=== PATIENT | female | born 1945 | race Caucasian/White ===

== ENCOUNTER 2020-10-24 10:46 | Inpatient (IN) | payer MEDICARE ==
[~2020-10-24] VITALS: Ht 157.5 cm; Wt 76.7 kg
[~2020-10-24 10:46] MED LIST: AMOXICILLIN 8751 TAB PO; ARANESP SQ; ASPIR-LOW81 MG PO; ASPIRIN 81M81 MG/TA2 PO; ASPIRIN E.C. 8181 MG PO; CALCITRIOL PO; CALCIUM CARB W/1 TA1 PO; CALCIUM CARBONATE PO; CALCIUM600 M2 PO; CARAFATE 1GM1 G PO; CHOLESTYRAMINE1 PO1; COREG 6.256.25 MG/TA PO; COUMADIN 5MG5 MG/TAB PO; CREON 120000 U-1 ECC PO; CYANOCOBAL1000 MCG/2 IM; DIOVAN; DIOVAN HCT 12.51 TA1 PO; DIOVAN/HCT 12.51 TA1 PO; DIOVAN160 MG PO; DIOVAN40 MG PO; DIOVAN80 M1 PO; DOXYCYCLINE 10100 MG PO; FERROUS SU325 MG/TAB PO; FOLIC ACID; GLUCOPHAGE XR500 M1 PO; GLUCOTROL XL2.5 MG PO; HCTZ 25MG TAB25 MG PO; HCTZ PO; HUMIRA40 MG/0.1 SC; HYDROCHLOROT; HYDRODIURIL50 MG PO; IRON325 MG PO; JANUVIA50 MG PO; KENALOG0.1% TP; KLOR-CON M2020 MEQ PO; LASIX 40MG TABL40 MG PO; LEVEMIR100 U/ML SC; LEVEMIR100 U/ML SQ; LEVOTHYROXIN0.075 MG PO; LEVOTHYROXINE PO; LIPITOR 10MG10 MG PO; LIQUID MAGNESI400 MG PO; LOMOTIL 0.025 M1 TAB PO; LOTENSIN40 MG PO; LOTRIMIN15 GM TOP; MAG-OX 400400 MG/TAB PO; MAGNESIUM OXIDE PO; MULTI VITAMINS1 TAB PO; NATURAL MAGNES200 MG PO; NORCO 325 MG-7.1 TAB PO; NORVASC 5MG5 MG/TAB PO; OMNICEF 300MG300 MG PO; ONE DAILY1 TA1 PO; OSCAL 500 TAB500 MG PO; PERCOCET 325 MG1 TA2 PO; PRANDIN 0.5MG0.5 MG PO; PRANDIN1 MG PO; PREDNISONE 5MG5 MG PO; PREDNISONE20 MG PO; PRIL40 PO; PRILOSEC 20MG20 MG PO; PROAIR HFA0.09 MG/AC IH; QUESTRAN LIGH4 G/PKT PO; QUESTRAN LITE 41 PKT PO; QUESTRAN4 GM/9 GM PO; RESTORIL 1515 MG/CAP PO; ROCALTROL0.5 MCG PO; SODIUM BICARB PO; SODIUM BICARBO650 MG PO; SODIUM BICARBONATE PO; SYNTHROID0.075 MG/T PO; THERAGRAN1 TA1 PO; TUMS500 MG; TYLENOL 325MG325 MG PO; VENOFER IV; VIT D; VITAMIN B11000 MCG/M IM; VITAMIN C250250 MG PO; VITAMIN D; VITAMIN D 400400 IU PO; VITAMIN D PO; VITAMIN D31000 IU PO; VITAMIN D5000 IU PO; ZITHROMAX 250M250 MG PO; ZOFRAN 4MG T4 MG/TAB PO; ZOFRAN ODT4 MG PO; ZYLOPRIM 100MG100 MG PO; ZYLOPRIM 300MG300 MG PO; [UNRECOGNIZED DRUG - OTHER]
[2020-10-24 11:37] LABS: BASO % 0.5 % (0.0-2.0); GRAN % 60.9 % (42.2-75.2); LYMPH % 29.8 % (20.0-51.0); MEAN CELL VOLUME 95 fl (80.0-100.0); MEAN CORPUSCULAR HEMOGLOBIN 29 pg (27.0-31.0); MEAN CORPUSCULAR HGB CONC 31 g/dl (33.0-37.0); MEAN PLATELET VOLUME 9.8 fl (7.4-10.4); MONO # 0.6 (0.1-0.6); MONO % 8.6 % (1.7-9.3); PLATELET COUNT 226 K/mm3 (130-400)
[2020-10-24 11:50] LABS: ALBUMIN 3.9 gm/dL (3.5-5.0); BILIRUBIN,TOTAL 0.6 mg/dL (0.0-1.0); CALCIUM 7.8 mg/dL (8.4-10.2); CREATININE, serum 2.64 (0.52-1.25); POTASSIUM 3.6 mmol/L (3.4-5.0); TOTAL PROTEIN 7.1 gm/dL (6.4-8.2)
[2020-10-24 12:41] LABS: TROPONIN-I 0.049 ng/mL (0.000-0.035)
[2020-10-24 16:15] VITALS: BP 160/82; PULSE 71
--- NOTE | 2020-10-24 17:47 | NUR ---
PT ON 6L OXYMASK, DENIES SOB, REPORTS NAUSEA EARLIER TODAY BUT NON AT THIS TIME, PT PLEASANT, PT ALERT AND ORIENTED, ASSESSMENT PERFORMED, VITALS TAKEN, PT DENIES PAIN OR DISCOMFORT, WATER AT BEDSIDE, FLUIDS RUNNING, ANTIBIOTICS GIVEN, NO OTHER NEEDS
[2020-10-24 17:48] LABS: COLLECTION METHOD CLEAN CATCH
--- NOTE | 2020-10-24 17:59 | NUR ---
PT REFUSING DINNER, PT JUST WANTS TO SLEEP SHE SAYS.
[2020-10-24 18:06] LABS: PH 6 (5-8); SQUAMOUS EPITHELIAL None Seen /hpf; URINE APPEARANCE Hazy; URINE BACTERIA Rare /hpf; URINE BILIRUBIN Negative (NEGATIVE); URINE BLOOD 1+ (NEGATIVE); URINE COLOR Yellow; URINE GLUCOSE Negative (NEGATIVE); URINE KETONE 1+ (NEGATIVE); URINE LEUKOCYTE ESTERASE Negative (NEGATIVE); URINE NITRATE Negative (NEGATIVE); URINE PROTEIN(semi-quant) 2+ (NEGATIVE); URINE RBC 0-2 /hpf; URINE UROBILINOGEN Negative (NEGATIVE)
[2020-10-24 19:08] VITALS: BP 150/73; PULSE 76; TEMP 97.9
--- NOTE | 2020-10-24 19:27 | NUR ---
[facility] 459 per lab. Mervat VANEGAS notified.
--- NOTE | 2020-10-24 20:40 | NUR ---
Resting in bed. Assessment complete. Bases bilateral diminished otherwise clear. Heart sounds normal. Bowels active x4. Pulses present throughout. No edema noted. IV right AC infusing without complications. Denies pain. Denies needs at this time. Call light in reach.
--- NOTE | 2020-10-24 23:50 | NUR ---
Resting in bed. Denies needs. Call light in reach.
[2020-10-25 00:06] VITALS: BP 154/68; BP 160/73; PULSE 90; TEMP 97.1
--- NOTE | 2020-10-25 03:56 | NUR ---
Resting in bed. Call light in reach.
[2020-10-25 03:58] VITALS: BP 156/69; PULSE 87; TEMP 96.8
--- NOTE | 2020-10-25 05:10 | NUR ---
Reported headache after waking up, 8/10. Provided with PRN tylenol. Denies other needs at this time.
[2020-10-25 06:39] LABS: BASO % 0.3 % (0.0-2.0); GRAN # 2.5 (1.4-6.5); GRAN % 71.9 % (42.2-75.2); LYMPH # 0.7 (1.2-3.4); LYMPH % 20.5 % (20.0-51.0); MEAN CELL VOLUME 96 fl (80.0-100.0); MEAN CORPUSCULAR HGB CONC 31 g/dl (33.0-37.0); MEAN PLATELET VOLUME 10.7 fl (7.4-10.4); MONO # 0.2 (0.1-0.6); PLATELET COUNT 184 K/mm3 (130-400); RED BLOOD COUNT 3.14 M/mm3 (4.10-5.30); REDCELL DISTRIBUTION WIDTH-CV 12.9 % (11.5-14.5)
--- NOTE | 2020-10-25 06:39 | NUR ---
Patient required x1 dose of tylenol for headache. Otherwise uneventful night. Resting in bed this AM. Call light in reach.
[2020-10-25 06:48] LABS: C-REACTIVE PROTEIN 2.8 mg/dL (0.0-0.9); CALCIUM 6.9 mg/dL (8.4-10.2); CREATININE, serum 2.24 (0.52-1.25); POTASSIUM 3.5 mmol/L (3.4-5.0)
[2020-10-25 06:51] LABS: HEMATOCRIT 30.2 % (37.0-47.0); HEMOGLOBIN 9.3 g/dl (12.5-16.0); MEAN CORPUSCULAR HEMOGLOBIN 30 pg (27.0-31.0)
[2020-10-25 06:57] LABS: TROPONIN-I 0.033 ng/mL (0.000-0.035)
--- NOTE | 2020-10-25 07:07 | NUR ---
Report given to SAM Brock
[2020-10-25 08:47] VITALS: BP 148/82; PULSE 69; TEMP 96.5
--- NOTE | 2020-10-25 10:24 | NUR ---
Material Worker attempted to contact patient by room phone and was unable to reach her. Phone number listed as patient's cell phone is actually her daughter, Annie's phone number (ph#[phone]). Patient lives with her son, Torsten (ph#[phone]) and daughter in law, Lea. SW contacted Torsten to complete intake. Patient has her own apartment in Tor[place] and Lea's home and patient sees Dr. Kumar for primary care. Patient obtains [facility] from [facility] and Torsten advised he picks up medications for patient as she doesn't get out as much anymore. Patient uses a cane for ambulation and Torsten advised that he thinks patient's is supposed to be on oxygen, but isn't sure if she is compliant with this. Torsten advised that sometimes patient will not sure all information with her family and describes patient as "cankanterous" at times. Torsten advised patient is mostly independent with ADLS however has had more difficulty since about May. Torsten did state that patient does her own meals. Patient's daughter, Annie typically takes patient to her appointments but Torsten reports patient will not allow Annie to come into appointments with her. Patient does not have Advance Directives. Patient is not and has five children: Torsten, Annie, Mateo, Chetan, and Jan. Torsten advised patient will likely plan to return home at discharge. MAGGIE spoke with Hospitalist to request PT/OT orders and will continue to follow for discharge needs.
[2020-10-25 11:12] VITALS: BP 138/78; PULSE 75; TEMP 97.2
--- NOTE | 2020-10-25 13:05 | NUR ---
Department Administrator was informed by Hospitalist that patient will discharge over the weekend and will likely need home oxygen. SW contacted patient by room phone and this time patient answered. Patient verbalized understanding and selected [facility] as DME provider if she will require home oxygen. SW contacted [facility] and faxed initial referral. SW contacted patient's son, Torsten and provided update. SW will continue to follow.
--- NOTE | 2020-10-25 14:02 | NUR ---
PATIENT ON 3LPM SO02 92%
[2020-10-25 16:20] VITALS: BP 142/70; PULSE 79; TEMP 97.4
--- NOTE | 2020-10-25 18:13 | NUR ---
Patient is alert and oriented. patient report poor appetite for food. called [facility] to request for patient Previous lab and medication list. Scheduled follow up appt with Dr Kumar for the 10/31 @ 1400 - Telehealth visit. Patient continue on NS 60ml/hr. Patient to follow up with Cardiology for elevated troponin. Patient continue to have loose stool. Patient resting in bed at this time.
[2020-10-25 19:25] VITALS: BP 151/62; PULSE 78; TEMP 98.1
[2020-10-26 00:02] VITALS: BP 157/56; PULSE 77; TEMP 97.7
--- NOTE | 2020-10-26 00:17 | NUR ---
up to restroom and returned to bed. Denies other needs. Call light in reach.
--- NOTE | 2020-10-26 02:57 | NUR ---
Per respiratory, patient increased to 6 liters oximask. Mervat VANEGAS notified. No new orders at this time.
[2020-10-26 03:24] VITALS: BP 157/63; PULSE 77; TEMP 98.4
--- NOTE | 2020-10-26 06:24 | NUR ---
Patient had uneventful night. Resting in bed this AM. Call light in reach.
--- NOTE | 2020-10-26 07:09 | NUR ---
Report given to SAM Bai
[2020-10-26 07:45] VITALS: BP 158/78; PULSE 77; TEMP 97.5
--- NOTE | 2020-10-26 09:15 | NUR ---
Patient laying in bed, A&Ox3. VSS 3L NC O2. No reported SOB. Reports pain in neck and discomfort r/t laying in the hospital bed. Patient is really wanting to go home. Doctor notified. Droplet/contact precautions in place. Patient refusing to eat hospital food. Nursing staff encouraging patient to eat. No further needs expressed from the patient. Call light within reach
[2020-10-26 09:54] LABS: BASO % 0.2 % (0.0-2.0); GRAN # 4.8 (1.4-6.5); GRAN % 75.7 % (42.2-75.2); LYMPH # 1.1 (1.2-3.4); LYMPH % 17.2 % (20.0-51.0); MEAN CELL VOLUME 94 fl (80.0-100.0); MEAN CORPUSCULAR HGB CONC 31 g/dl (33.0-37.0); MEAN PLATELET VOLUME 10.7 fl (7.4-10.4); MONO # 0.4 (0.1-0.6); MONO % 6.4 % (1.7-9.3); PLATELET COUNT 235 K/mm3 (130-400); RED BLOOD COUNT 3.34 M/mm3 (4.10-5.30); REDCELL DISTRIBUTION WIDTH-CV 13.1 % (11.5-14.5)
[2020-10-26 10:08] LABS: CALCIUM 7.4 mg/dL (8.4-10.2); CREATININE, serum 1.9 (0.52-1.25); HEMATOCRIT 31.4 % (37.0-47.0); HEMOGLOBIN 9.8 g/dl (12.5-16.0); MEAN CORPUSCULAR HEMOGLOBIN 29 pg (27.0-31.0)
[2020-10-26 10:10] LABS: MAGNESIUM 0.9 mg/dL (1.6-2.3)
[2020-10-26 12:05] VITALS: BP 160/68; PULSE 71; TEMP 96.9
[2020-10-26 16:00] VITALS: BP 147/55; PULSE 78; TEMP 98
--- NOTE | 2020-10-26 18:26 | NUR ---
Patient had an uneventful day. A&Ox4. VSS 2L NC O2, no report SOB.IV CDI, fluids infusing. Complaints of pain in neck and a headache. Pain medication given when requested. Droplet/contact precautions in place. No further needs expressed from the patient. Call light within reach
[2020-10-26 20:02] VITALS: BP 131/56; PULSE 80; TEMP 97.5
--- NOTE | 2020-10-26 20:45 | NUR ---
Resting in bed. Assessment complete. Bases bilaterally crackles present otherwise lung sounds clear. Heart sounds normal. Bowels active x4. Pulses present throughout. No edema noted. INT right AC difficult to flush and IV pump having difficulty infusing. Restarted by house supervisior in left wrist. Denies needs. Denies pain. Refused HS sodium bicarb. Call light in reach.
--- NOTE | 2020-10-27 00:08 | NUR ---
Resting in bed. Denies needs. Call light in reach.
[2020-10-27 00:47] VITALS: BP 135/57; PULSE 73; TEMP 98.6
[2020-10-27 04:45] VITALS: BP 137/50; PULSE 79; TEMP 98.3
--- NOTE | 2020-10-27 05:08 | NUR ---
Patient had an uneventful night. Resting in bed this AM. Call light in reach.
--- NOTE | 2020-10-27 06:48 | NUR ---
Report given to SAM Hernandez
[2020-10-27 08:30] VITALS: BP 173/55; PULSE 76; TEMP 98.2
--- NOTE | 2020-10-27 08:50 | NUR ---
PATIENT ASSESSMENT COMPLETED. SHE SITS AT THIS SIDE OF THE BED AND WILL TAKE MORNING MEDICATION AND WILL EAT A LITTLE BREAKFAST. DENIES SOB AND KEEPS OXYGEN ON AT 2L
[2020-10-27] MEDS ORDERED: DOXYCYCLINE 10100 MG PO (09:47)
[2020-10-27] MEDS ORDERED: TYLENOL 325MG325 MG PO (09:47)
[2020-10-27] MEDS ORDERED: ROBITUSSIN100 MG/5 M PO (09:48)
[2020-10-27] MEDS ORDERED: DECADRON6 MG PO (09:51)
[2020-10-27] MEDS ORDERED: OXYGEN (09:55)
[2020-10-27 11:18] LABS: MAGNESIUM 1.8 mg/dL (1.6-2.3); POTASSIUM 3.1 mmol/L (3.4-5.0)
[2020-10-27 12:00] VITALS: BP 172/53; PULSE 78; TEMP 98.2
--- NOTE | 2020-10-27 13:09 | NUR ---
SW update, social media strategist faxed [facility] for oxygen [phone] , spoke with aviation safety equipment technician for delievery of tank to hospital. Reports fax received and will be out with in the hour. faxed [phone] awaiting delivery.
--- NOTE | 2020-10-27 15:00 | NUR ---
PATIENT DISCHARGED TO HOME VIA WHEELCHAIR WITH HER BELONGINGS. SHE DENIES QUESTIONS AND SHE DENIES ANY BELONGINGS THAT HAVE BEEN IN LOCK UP. BROUGHT TO THE ED DOORS FOR DAUGHTER TO PICK HER UP.
[2020-10-28] MEDS ORDERED: NORCO 325 MG-51 TAB PO (18:29)
== END 2020-10-27 15:00 | disposition home or self-care (01) | DRG 177 ==
LOC: COL.ER 10:46 → MEDICAL 14:00
PROVIDERS: Emergency Medicine; Internal Medicine; Student in an Organized Health Care Education/Training Program; ADMIT Student in an Organized Health Care Education/Training Program
DX: U07.1 COVID-19 (principal); J12.89 Other viral pneumonia; J96.01 Acute respiratory failure with hypoxia; I21.A1 Myocardial infarction type 2; N17.9 Acute kidney failure, unspecified; N25.81 Secondary hyperparathyroidism of renal origin; K50.90 Crohn's disease, unspecified, without complications; E03.9 Hypothyroidism, unspecified; Z66 Do not resuscitate; E11.22 Type 2 diabetes mellitus with diabetic chronic kidney disease; N18.9 Chronic kidney disease, unspecified; J45.909 Unspecified asthma, uncomplicated; R19.7 Diarrhea, unspecified; D64.9 Anemia, unspecified; E83.51 Hypocalcemia; Z79.84 Long term (current) use of oral hypoglycemic drugs; Z87.891 Personal history of nicotine dependence
CPT/HCPCS: 99223-AI; 99232-AI; 99239; J0696; J1644; J1815; J2405; J3475; J7030; J7050; J8540

== ENCOUNTER 2021-04-24 10:24 | Emergency (ER) | payer MEDICARE ==
[~2021-04-24] VITALS: Ht 157.5 cm; Wt 82.7 kg
[2021-04-24 10:24] VITALS: TEMP 97.8
[~2021-04-24 10:24] MED LIST changes: +DECADRON6 MG PO; +NORCO 325 MG-51 TAB PO; +OXYGEN; +ROBITUSSIN100 MG/5 M PO
[2021-04-24 11:10] VITALS: BP 137/60; PULSE 66
[2021-07-29] MEDS ORDERED: NEURONTIN100 MG/CAP PO (18:09)
[2021-07-29] MEDS ORDERED: ZYLOPRIM 100MG100 MG PO (18:16)
[2021-07-29] MEDS ORDERED: B-121000 MCG PO (18:20)
[2021-07-29] MEDS ORDERED: FOLIC ACID0.4 MG PO (18:24)
[2021-07-29] MEDS ORDERED: HUMIRA40 MG/0.8 SQ (18:25)
[2021-07-29] MEDS ORDERED: NORCO 325 MG-7.1 TAB PO (18:26)
== END 2021-04-24 11:10 | disposition home or self-care (01) ==
LOC: COL.ER 10:24
DX: R55 Syncope and collapse (principal); I12.9 Hypertensive chronic kidney disease with stage 1 through stage 4 chronic kidney disease, or unspecified chronic kidney disease; N18.4 Chronic kidney disease, stage 4 (severe); R19.7 Diarrhea, unspecified; Z87.891 Personal history of nicotine dependence; Z79.899 Other long term (current) drug therapy